=== PATIENT | male | born 1960 | race Caucasian/White ===

== ENCOUNTER 2016-05-18 14:48 | Inpatient (IN) | payer OTHER ==
--- NOTE | 2016-05-18 15:03 | EDPHY ---
H & P Stated Complaint: Bilat flank pain, starting 3 hours ago. Has chronic kidney DX Time Seen by Provider: 05/18/16 15:02 - Personal History Current Tetanus Diphtheria and Acellular Pertussis (TDAP): Yes - Medical/Surgical History Hx Asthma: No Hx Chronic Respiratory Disease: No Hx Diabetes: Yes Hx Cardiac Disease: No Hx Renal Disease: Yes Hx Cirrhosis: No Hx Alcoholism: No Hx HIV/AIDS: No Hx Splenectomy or Spleen Trauma: No Other PMH: Kidney dx, Diabetic - Social History Smoking Status: Never smoked Constitutional: Initial Vital Signs Heart Rate 77 05/18/16 14:50 Respiratory Rate 20 05/18/16 14:50 Blood Pressure 168/9 H 05/18/16 14:50 O2 Sat (%) 93 05/18/16 14:50 O2 Delivery Mode Room Air Allergies/Adverse Reactions: ancef Allergy (Uncoded 05/18/16 14:54) Medical Decision Making ED Course/Re-evaluation: CHIEF COMPLAINT: Vomiting, flank pain. HISTORY OF PRESENT ILLNESS: The patient is a 55-year-old male with a history of kidney failure who presents with vomiting and flank pain. He is usually dialyzed Wednesday, Wednesday, and Wednesday but has missed a day as he is visiting from [place]. He reports that these symptoms are similar to when he is in " fluid overload." He has been making a small amount of urine. He denies chills, fever, diarrhea, or other complaints. He believes he needs dialysis today. REVIEW OF SYSTEMS: A 10 point review of systems was performed and is negative with the exception of the elements mentioned in the history of present illness. PHYSICAL EXAM: HR, BP, O2 Sat, RR. Temp noted General Appearance: Alert, well hydrated, appropriate, and non-toxic appearing. Head: Atraumatic without scalp tenderness or obvious injury Eyes: Pupils equal, round, reactive to light and accommodation, EOMI, no trauma , no injection. Ears: Clear bilaterally, no perforation, normal landmarks Nose: Atraumatic, no rhinorrhea, clear. Throat: There is no erythema or exudates, no lesions, normal tonsils, mucus membranes moist. Neck: Supple, 2+ carotid upstroke, nontender, no lymphadenopathy. Respiratory: No retractions, no distress, no wheezes, and no accessory muscle use. Lungs are clear to auscultation bilaterally. Cardiovascular: Regular rate and rhythm, no murmurs, rubs, or gallops. Bilateral carotid, radial, dorsalis pedis, and posterior tibial pulses intact. Good capillary refill all extremities. Gastrointestinal: Abdomen is soft, nontender, non-distended, no masses, no rebound, no guarding, no peritoneal signs. Musculoskeletal: Normal active ROM of all extremities, atraumatic. Dialysis port in left arm. Neurological: Alert, appropriate, and interactive. The patient has normal DTRs and non-focal cranial nerves, motor, sensory, and cerebellar exam. Skin: No rashes, good turgor, no nodules on palpation. Past medical history: Diabetes with kidney failure, UTI. Past surgical history: N/A. Family history: N/A. Social history: Visiting from [place]. DIAGNOSTICS/PROCEDURES/CRITICAL CARE TIME: Critical care time spent by me, Dr. Ramirez, exclusively with this patient was 40 minutes, exclusive of PA time and exclusive of procedures. The organ system at risk was renal. I gave Ceftriaxone to prevent worsening of the patient's condition. DIFFERENTIAL DIAGNOSIS: The differential diagnosis for the patient's flank pain included but was not limited to musculoskeletal causes, kidney stone, pyelonephritis, shingles, diverticulitis, appendicitis, and aortic aneurysm. MEDICAL DECISION MAKIN-year-old male with a history of kidney failure secondary to diabetes presents with flank pain and vomiting. He is visiting from [place] and missed his last scheduled day (he is usually M/W/F dialysis). He has also been drinking more water as he is at altitude and reports that he gets these symptoms when he has fluid overload. We will draw labs and run urinalysis. Nephrology has been paged. 1mg IV Dilaudid administered for pain control. He is usually 126kg but today is 128. He has no evidence of shortness of breath, bloating, or other signs of fluid overload today. WBC elevated at 13.94. Urine shows 2+ leukocyte esterase. This could represent mild pyelonephritis. 1gm IV Ceftriaxone administered. BUN 144, Creatinine 14.4, potassium elevated at 5.6. 1532: Consulted with Dr. Altman, nephrology. She recommends admission for dialysis. 1640: Consulted with Dr. Altman, nephrology. She will consult with the patient. 1645: Consulted with Dr. Malcolm, hospitalist. She accepts admission to PCU. I discussed the plan with the patient and answered his questions. He is comfortable with the plan. - Data Points Laboratory Results: Laboratory Results 05/18/16 15:05 05/18/16 15:05 05/18/16 05/18/16 05/18/16 15:36 15:05 15:05 WBC 13.94 10^3/uL H 10^3/uL (3.80-9.50) RBC 3.52 10^6/uL L 10^6/uL (4.40-6.38) Hgb 10.9 g/dL L g/dL (13.7-17.5) Hct 32.8 % L % (40.0-51.0) MCV 93.2 fL fL (81.5-99.8) MCH 31.0 pg pg (27.9-34.1) MCHC 33.2 g/dL g/dL (32.4-36.7) RDW 14.3 % % (11.5-15.2) Plt Count 211 10^3/uL 10^3/uL (150-400) MPV 10.0 fL fL (8.7-11.7) Neut % (Auto) 77.9 % H % (39.3-74.2) Lymph % (Auto) 14.2 % L % (15.0-45.0) [place] % (Auto) 7.0 % % (4.5-13.0) Eos % (Auto) 0.0 % L % (0.6-7.6) Baso % (Auto) 0.4 % % (0.3-1.7) Nucleat RBC Rel Count 0.0 % % (0.0-0.2) Absolute Neuts (auto) 10.85 10^3/uL H 10^3/uL (1.70-6.50) Absolute Lymphs (auto) 1.98 10^3/uL 10^3/uL (1.00-3.00) Absolute Monos (auto) 0.98 10^3/uL H 10^3/uL (0.30-0.80) Absolute Eos (auto) 0.00 10^3/uL L 10^3/uL (0.03-0.40) Absolute Basos (auto) 0.06 10^3/uL 10^3/uL (0.02-0.10) Absolute Nucleated RBC 0.00 10^3/uL 10^3/uL (0-0.01) Immature Gran % 0.5 % % (0.0-1.1) Immature Gran # 0.07 10^3/uL 10^3/uL (0.00-0.10) Sodium 141 mEq/L mEq/L (134-144) Potassium 5.6 mEq/L H mEq/L (3.5-5.2) Chloride 98 mEq/L mEq/L (97-110) Carbon Dioxide 20 mEq/l L mEq/l (22-31) Anion Gap 23 mEq/L H mEq/L (8-16) BUN 144 mg/dL H* mg/dL (7-23) Creatinine 14.4 mg/dL H* mg/dL (0.7-1.3) Estimated GFR 4 Glucose 160 mg/dL H mg/dL (70-100) Calcium 10.3 mg/dL mg/dL (8.5-10.4) Total Bilirubin 0.6 mg/dL mg/dL (0.1-1.4) Conjugated Bilirubin 0.6 mg/dL H mg/dL (0.0-0.5) Unconjugated Bilirubin 0.0 mg/dL mg/dL (0.0-1.1) AST 19 IU/L IU/L (17-59) ALT 32 IU/L IU/L (21-72) Alkaline Phosphatase 85 IU/L IU/L (38-126) Total Protein 7.8 g/dL g/dL (6.3-8.2) Albumin 4.8 g/dL g/dL (3.5-5.0) Lipase 489.0 IU/L H IU/L (23-300) Urine Color YELLOW Urine Appearance MODERATELY TURBID Urine pH 5.0 (5.0-7.5) Ur Specific [place] 1.014 (1.002-1.030) Urine Protein 2+ H (NEGATIVE) Urine Ketones NEGATIVE (NEGATIVE) Urine Blood 1+ H (NEGATIVE) Urine Nitrate NEGATIVE (NEGATIVE) Urine Bilirubin NEGATIVE (NEGATIVE) Urine Urobilinogen NEGATIVE EU EU (0.2-1.0) Ur Leukocyte Esterase 2+ H (NEGATIVE) Urine RBC 1-3 /hpf /hpf (0-3) Urine WBC 50-182 /hpf H /hpf (0-3) Ur Epithelial Cells TRACE /lpf /lpf (NONE-1+) Urine Mucus TRACE /lpf /lpf (NONE-1+) Ur Culture Indicated? INDICATED H (NI) Urine Glucose 2+ H (NEGATIVE) Medications Given: Discontinued Medications Hydromorphone HCl (Dilaudid) 1 mg IVP EDNOW ONE Stop: 05/18/16 15:26 Last Admin: 05/18/16 16:02 Dose: 1 mg Departure - Departure Disposition: [facility] Inpatient Acute Clinical Impression: Pyelonephritis, Hyperkalemia Fluid overload Qualifiers: Hypervolemia type: unspecified Qualified Code(s): E87.70 - Fluid overload, unspecified Condition: Fair Referrals: ZORA FREIRE [Other] - As per Instructions Report Scribed for: Checo Ramirez Report Scribed by: Abhijit Ward Date of Report: 05/18/16 Time of Report: 15:29
[2016-05-18] MEDS ORDERED: HYDROmorphONE/DILAUDID 1 MG/ML SYR IVP ONE (15:25)
[2016-05-18 15:29] LABS: % IMMATURE GRANULYOCYTES 0.5 % (0.0-1.1); ABSOLUTE IMMATURE GRANULOCYTES 0.07 10^3/uL (0.00-0.10); ADD DIFF? NO; ADD MORPH? NO; ADD SCAN? NO; ATYPICAL LYMPHOCYTE FLAG 0 (0-99); FRAGMENT RBC FLAG 0 (0-99); HEMATOCRIT 32.8 % (40.0-51.0); HEMOGLOBIN 10.9 g/dL (13.7-17.5); LEFT SHIFT FLG 0 (0-99); LIPEMIA HEMOLYSIS FLAG 80 (0-99); MEAN CELL HEMOGLOBIN CONCENTR. 33.2 g/dL (32.4-36.7); MEAN CELL VOLUME 93.2 fL (81.5-99.8); PLATELET CLUMPS FLAG 0 (0-99); PLATELET COUNT 211 10^3/uL (150-400); RED BLOOD CELL COUNT 3.52 10^6/uL (4.40-6.38); RED CELL DISTRIBUTION WIDTH 14.3 % (11.5-15.2)
[2016-05-18 15:54] LABS: ALANINE AMINOTRANSFERASE 32 IU/L (21-72); ALBUMIN 4.8 g/dL (3.5-5.0); ALKALINE PHOSPHATASE 85 IU/L (38-126); ANION GAP 23 mEq/L (8-16); ASPARTATE AMINOTRANSFERASE 19 IU/L (17-59); BILIRUBIN,TOTAL 0.6 mg/dL (0.1-1.4); BILIRUBIN-CONJUGATED 0.6 mg/dL (0.0-0.5); CALCIUM 10.3 mg/dL (8.5-10.4); CARBON DIOXIDE 20 mEq/l (22-31); CHLORIDE 98 mEq/L (97-110); GLUCOSE 160 mg/dL (70-100); POTASSIUM 5.6 mEq/L (3.5-5.2); SODIUM 141 mEq/L (134-144); TOTAL PROTEIN 7.8 g/dL (6.3-8.2)
[2016-05-18 16:05] LABS: COLOR YELLOW; LEUKOCYTE ESTERASE,URINE 2+ (NEGATIVE); NITRITE,URINE NEGATIVE (NEGATIVE)
[2016-05-18 16:17] LABS: MUCUS TRACE /lpf (NONE-1+); WBC,URINE 50-182 /hpf (0-3)
[2016-05-18 16:24] LABS: GLOMERULAR FILTRATION RATE 4
[2016-05-18 16:26] LABS: CREATININE 14.4 mg/dL (0.7-1.3)
[2016-05-18] MEDS ORDERED: ONDANSETRON DISINTEGRATING 4 MG TAB PO PRN ×2 (17:53→18:18)
[2016-05-18] MEDS ORDERED: ACETAMINOPHEN 325 MG TAB PO PRN ×2 (17:53→18:18)
[2016-05-18] MEDS ORDERED: oxyCODONE IR 5 MG TAB PO PRN ×2 (17:53→18:18)
[2016-05-18] MEDS ORDERED: ONDANSETRON 4 MG/2 ML VIAL IVP PRN ×2 (17:53→18:18)
[2016-05-18] MEDS ORDERED: D50W 25 GM/50 ML SYR IVP PRN (18:09)
--- NOTE | 2016-05-18 18:38 | PDGENHP ---
History and Physical - Chief Complaint ESRD - History of Present Illness Mr. Gipson is a 55 yo M with h/o ESRD on HD MWF at [facility] in [place], [place]. He states he has been on HD since 2012, likely had diabetic nephropathy. He is here visiting for the week for a course. He states that he placed a 60 day request with [facility] about dialyzing locally and was told to come to [facility] on Wednesday and , but the unit is not open then. It turns out he was given the wrong address and the unit he was given instead says they are full and unable to accommodate him. So he does not know where he will dialyze this week. Pt came in with complaints of flank pain, N/V that started today. He notes that he is not that much over his dry weight, and his breathing feels comfortable. History Information - Allergies/Home Medication List Allergies/Adverse Reactions: ancef Allergy (Uncoded 05/18/16 14:54) Home Medications: Acetaminophen [Tylenol ES 500 mg (*)] 500 mg PO TID 05/18/16 [Last Taken 12:00] Calcium Acetate [Phoslo (*)] 667 mg PO TID 05/18/16 [Last Taken 05/18/16 12:00] Folic Acid/Vit B Complex and C [Dialyvite Tablet] 1 tab PO DAILY 05/18/16 [Last Taken 05/18/16 06:00] Furosemide [Lasix 80 MG (*)] 80 mg PO SUTUTHSA@06 05/18/16 [Last Taken 05/17/16 06:00] Insulin Glargine [Lantus 100 UNITS/ML (*)] 16 units SC DAILY 05/18/16 [Last Taken 05/18/16 06:00] Insulin Lispro [humALOG LISPRO 100 units/ml (*)] 16 unit SC TIDMEAL 05/18/16 [ Last Taken 05/18/16 12:00] Losartan Potassium [Cozaar] 100 mg PO HS 05/18/16 [Last Taken 05/17/16 18:30] NIFEdipine ER [Adalat CC 30 mg (*)] 30 mg PO DAILY 05/18/16 [Last Taken 06:00] Sertraline HCl [Zoloft 25mg (*)] 25 mg PO HS 05/18/16 [Last Taken 05/17/16 18:30 ] Simvastatin [Zocor] 40 mg PO HS 05/18/16 [Last Taken 05/17/16 18:30] I have personally reviewed and updated: medical history - Past Medical History Additional medical history: ESRD. DM - Surgical History Additional surgical history: L 5th toe amputation. LUE AVF creation - Family History Additional family history: noncontributory - Social History Smoking Status: Never smoked Review of Systems ROS: 10pt was reviewed & negative except for what was stated in HPI & below Physical Exam Temp Pulse Resp BP Pulse Ox 86 16 145/74 H 98 05/18/16 18:04 05/18/16 18:04 05/18/16 18:04 05/18/16 18:04 Constitutional: no apparent distress, appears nourished Eyes: PERRL, anicteric sclera, EOMI Ears, Nose, Mouth, Throat: moist mucous membranes, hearing normal Cardiovascular: regular rate and rhythym, pulses symmetric bilaterally Peripheral Pulses: 2+: dorsalis-pedis (R), dorsalis-pedis (L) Respiratory: no respiratory distress, no rales or rhonchi, clear to auscultation Gastrointestinal: normoactive bowel sounds, soft, non-tender abdomen Skin: warm, No rash Musculoskeletal: full muscle strength, other (s/p L 5th toe amputation) Neurologic: AAOx3, CN II-XII Intact, No asterixes Psychiatric: interacting appropriately, not anxious, not encephalopathic Lab Data & Imaging Review 05/18/16 15:05 05/18/16 15:05 WBC 13.94 10^3/uL (3.80-9.50) H 05/18/16 15:05 RBC 3.52 10^6/uL (4.40-6.38) L 05/18/16 15:05 Hgb 10.9 g/dL (13.7-17.5) L 05/18/16 15:05 Hct 32.8 % (40.0-51.0) L 05/18/16 15:05 MCV 93.2 fL (81.5-99.8) 05/18/16 15:05 MCH 31.0 pg (27.9-34.1) 05/18/16 15:05 MCHC 33.2 g/dL (32.4-36.7) 05/18/16 15:05 RDW 14.3 % (11.5-15.2) 05/18/16 15:05 Plt Count 211 10^3/uL (150-400) 05/18/16 15:05 MPV 10.0 fL (8.7-11.7) 05/18/16 15:05 Neut % (Auto) 77.9 % (39.3-74.2) H 05/18/16 15:05 Lymph % (Auto) 14.2 % (15.0-45.0) L 05/18/16 15:05 [place] % (Auto) 7.0 % (4.5-13.0) 05/18/16 15:05 Eos % (Auto) 0.0 % (0.6-7.6) L 05/18/16 15:05 Baso % (Auto) 0.4 % (0.3-1.7) 05/18/16 15:05 Nucleat RBC Rel Count 0.0 % (0.0-0.2) 05/18/16 15:05 Absolute Neuts (auto) 10.85 10^3/uL (1.70-6.50) H 05/18/16 15:05 Absolute Lymphs (auto) 1.98 10^3/uL (1.00-3.00) 05/18/16 15:05 Absolute Monos (auto) 0.98 10^3/uL (0.30-0.80) H 05/18/16 15:05 Absolute Eos (auto) 0.00 10^3/uL (0.03-0.40) L 05/18/16 15:05 Absolute Basos (auto) 0.06 10^3/uL (0.02-0.10) 05/18/16 15:05 Absolute Nucleated RBC 0.00 10^3/uL (0-0.01) 05/18/16 15:05 Immature Gran % 0.5 % (0.0-1.1) 05/18/16 15:05 Immature Gran # 0.07 10^3/uL (0.00-0.10) 05/18/16 15:05 Sodium 141 mEq/L (134-144) 05/18/16 15:05 Potassium 5.6 mEq/L (3.5-5.2) H 05/18/16 15:05 Chloride 98 mEq/L (97-110) 05/18/16 15:05 Carbon Dioxide 20 mEq/l (22-31) L 05/18/16 15:05 Anion Gap 23 mEq/L (8-16) H 05/18/16 15:05 BUN 144 mg/dL (7-23) H* 05/18/16 15:05 Creatinine 14.4 mg/dL (0.7-1.3) H* 05/18/16 15:05 Estimated GFR 4 05/18/16 15:05 Glucose 160 mg/dL (70-100) H 05/18/16 15:05 Calcium 10.3 mg/dL (8.5-10.4) 05/18/16 15:05 Total Bilirubin 0.6 mg/dL (0.1-1.4) 05/18/16 15:05 Conjugated Bilirubin 0.6 mg/dL (0.0-0.5) H 05/18/16 15:05 Unconjugated Bilirubin 0.0 mg/dL (0.0-1.1) 05/18/16 15:05 AST 19 IU/L (17-59) 05/18/16 15:05 ALT 32 IU/L (21-72) 05/18/16 15:05 Alkaline Phosphatase 85 IU/L (38-126) 05/18/16 15:05 Total Protein 7.8 g/dL (6.3-8.2) 05/18/16 15:05 Albumin 4.8 g/dL (3.5-5.0) 05/18/16 15:05 Lipase 489.0 IU/L (23-300) H 05/18/16 15:05 Urine Color YELLOW 05/18/16 15:36 Urine Appearance MODERATELY TURBID 05/18/16 15:36 Urine pH 5.0 (5.0-7.5) 05/18/16 15:36 Ur Specific [place] 1.014 (1.002-1.030) 05/18/16 15:36 Urine Protein 2+ (NEGATIVE) H 05/18/16 15:36 Urine Ketones NEGATIVE (NEGATIVE) 05/18/16 15:36 Urine Blood 1+ (NEGATIVE) H 05/18/16 15:36 Urine Nitrate NEGATIVE (NEGATIVE) 05/18/16 15:36 Urine Bilirubin NEGATIVE (NEGATIVE) 05/18/16 15:36 Urine Urobilinogen NEGATIVE EU (0.2-1.0) 05/18/16 15:36 Ur Leukocyte Esterase 2+ (NEGATIVE) H 05/18/16 15:36 Urine RBC 1-3 /hpf (0-3) 05/18/16 15:36 Urine WBC 50-182 /hpf (0-3) H 05/18/16 15:36 Ur Epithelial Cells TRACE /lpf (NONE-1+) 05/18/16 15:36 Urine Mucus TRACE /lpf (NONE-1+) 05/18/16 15:36 Ur Culture Indicated? INDICATED (NI) H 05/18/16 15:36 Urine Glucose 2+ (NEGATIVE) H 05/18/16 15:36 Assessment & Plan Assessment: Assessment/Plan: ESRD: pt has HD on MWF, last dialyzed on Wednesday at his home unit in [place]. He is visiting and somehow his outpatient dialysis to be done here has not been set up correctly. - Will do HD tomorrow. - Will look into his dialysis options tomorrow to be done later this week as outpatient. Hypervolemia: continue home Lasix, will further modulate on HD. HTN: continue home meds. Hyperkalemia: will modulate on HD. Anemia: Hgb 10.9, at goal, no need for inpt epo. Thank you for the interesting consult. Nephrology will continue to monitor, please call with any additional questions or concerns.
--- NOTE | 2016-05-18 19:27 | GHP ---
[f rep st] HISTORY AND PHYSICAL DATE OF ADMISSION: 05/18/2016 CHIEF COMPLAINT: Nausea, vomiting, and flank pain. HISTORY OF PRESENT ILLNESS: The patient is a 55-year-old male with a history of diabetes and diabetic nephropathy resulting in end-stage renal disease, who currently is on a Wednesday, Wednesday, Wednesday hemodialysis regimen in [place]. He presents to the emergency department as his plan to continue dialysis as a visitor to the [facility] failed and today while in a conference, he developed bilateral flank pain which progressed to nausea and vomiting. He denies fevers or chills. He denies chest pain, shortness of breath, or abdominal pain. He does make some urine and endorses dysuria. The patient reports his dry weight is 120 kg, and he currently feels he is at least 3.5 kilos up from his dry weight. He also has a history of a diabetic foot ulcer and in January of last year underwent a 5th metatarsal amputation. He currently denies any erythema, pain, or purulence from his wound site, which has been healing well and he has been doing good wound care independently. In the emergency department, he has an abnormal urinalysis with an elevated white blood cell count though he is afebrile without hypotension or tachycardia. Labs revealed an elevated potassium of 5.6, a creatinine of 14.4, and the patient was admitted to the hospital for treatment of a UTI and a need for dialysis. PAST MEDICAL HISTORY: 1. Insulin-dependent diabetes mellitus. 2. Diabetic nephropathy. 3. End-stage renal disease, on hemodialysis with a regimen of Wednesday, Wednesday , Wednesday. 4. Obstructive sleep apnea. 5. History of sepsis related to infected port. 6. Diabetic foot ulcer. PAST SURGICAL HISTORY: 1. Left 5th metatarsal amputation related to diabetic foot ulcer. 2. At least 2 port placements and removals. FAMILY HISTORY: Positive for diabetes and COPD in his mother. SOCIAL HISTORY: The patient denies alcohol or tobacco use. 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 Unfortunately , he fell ill the first day of the conference and he is quite disappointed to be hospitalized. REVIEW OF SYSTEMS: A 10-point review of systems was performed and is negative except as per HPI. OBJECTIVE: VITAL SIGNS: He is afebrile. Blood pressure 168/90, heart rate 77 , respiratory rate 20, 93% on room air. GENERAL: The patient is awake, alert, and oriented in no acute distress. HEENT: Head is atraumatic, normocephalic. Pupils equal, round, and reactive to light. Extraocular muscles are intact. Oropharynx is clear. Mucous members are moist. NECK: Supple. There is no JVD. HEART: Regular rate and rhythm. LUNGS: Clear to auscultation bilaterally. ABDOMEN: Soft, nondistended, nontender with normoactive bowel sounds. He has bilateral CVA tenderness. EXTREMITIES: Reveal trace to 1+ lower extremity pitting edema with brawny discoloration. His left 5th metatarsal amputation appears to be healing well. There is no erythema, purulence, or warmth. NEUROLOGIC: Exam is grossly nonfocal. LABORATORY DATA: CBC reveals a white blood cell count 13.9, hemoglobin 10.9. He has 78% neutrophils. Complete metabolic panel reveals a sodium of 141, potassium of 5.6, CO2 of 20. He has an elevated anion gap of 23, BUN 144, creatinine 14.4, blood sugar 160. Lipase slightly elevated at 489. Urinalysis shows 2+ protein, 1+ blood, 2+ leukocyte esterase with 50-180 white cells. Negative nitrites, no bacteria is noted. ASSESSMENT AND PLAN: The patient is a 55-year-old male with a history of dialysis dependent end-stage renal disease secondary to diabetic nephropathy who presents to the emergency department with nausea, vomiting, and flank pain. 1. End-stage renal disease secondary to diabetic nephropathy with volume overload. He is up at least 3.5 kilos from his dry weight. His potassium is slightly elevated at 5.6, which he states is near his baseline. Nephrology is consulting and will arrange for dialysis, likely to be done tomorrow. Daily renal function panel. 2. Possible urinary tract infection. The patient does have urinary symptoms as well as flank pain and leukocytosis. His urinalysis shows pyuria though he has negative nitrites and no bacteria is noted. Blood cultures and urine cultures are pending. We will continue ceftriaxone empirically while we await culture data. 3. Insulin-dependent diabetes mellitus. His blood sugar on arrival is 160. Will continue his outpatient insulin regimen. 4. Elevated lipase. This is likely secondary to vomiting. He has no significant abdominal pain or tenderness. Will recheck this in the morning. 5. Anion gap metabolic acidosis. Likely related to his chronic kidney disease. Will defer oral sodium bicarb dosing to Renal and follow. 6. Deep venous thrombosis prophylaxis. Heparin. 7. Code status. Patient is full code. 8. Disposition. Patient is admitted to inpatient status as I suspect he may require greater than 48 hours hospitalization given his dialysis needs. /[id number]/MODL MTDD
[2016-05-18] MEDS ORDERED: NON-FORMULARY NEW DRUG (Simvastatin [Zocor] 40 MG) PO SCH (21:00)
[2016-05-18] MEDS ORDERED: SERTRALINE HCL 25 MG TAB PO SCH ×2 (21:00)
[2016-05-18] MEDS ORDERED: NON-FORMULARY NEW DRUG (Losartan Potassium [Cozaar] 100 MG) PO SCH (21:00)
[2016-05-18] MEDS ORDERED: ATORVASTATIN CALCIUM 20 MG TAB PO SCH (21:00)
[2016-05-18] MEDS: CALCIUM ACETATE 667 MG CAP PO SCH (21:48)
[2016-05-18] MEDS: HEPARIN 5,000 UNIT/0.5 ML SYR SC SCH (21:48)
[2016-05-18] MEDS ORDERED: CALCIUM ACETATE 667 MG CAP PO SCH (22:00)
[2016-05-18] MEDS ORDERED: HEPARIN 5,000 UNIT/0.5 ML SYR SC SCH (22:00)
[2016-05-19 04:57] LABS: % IMMATURE GRANULYOCYTES 0.5 % (0.0-1.1); ABSOLUTE IMMATURE GRANULOCYTES 0.05 10^3/uL (0.00-0.10); ADD DIFF? NO; ADD MORPH? NO; ADD SCAN? NO; ATYPICAL LYMPHOCYTE FLAG 0 (0-99); FRAGMENT RBC FLAG 0 (0-99); HEMATOCRIT 29.1 % (40.0-51.0); HEMOGLOBIN 9.5 g/dL (13.7-17.5); LEFT SHIFT FLG 0 (0-99); LIPEMIA HEMOLYSIS FLAG 80 (0-99); MEAN CELL HEMOGLOBIN 31.4 pg (27.9-34.1); MEAN CELL HEMOGLOBIN CONCENTR. 32.6 g/dL (32.4-36.7); MEAN PLATELET VOLUME 9.8 fL (8.7-11.7); PLATELET CLUMPS FLAG 0 (0-99); PLATELET COUNT 139 10^3/uL (150-400); RED BLOOD CELL COUNT 3.03 10^6/uL (4.40-6.38); RED CELL DISTRIBUTION WIDTH 14.1 % (11.5-15.2)
[2016-05-19 05:25] LABS: ALBUMIN 3.9 g/dL (3.5-5.0); ANION GAP 21 mEq/L (8-16); CALCIUM 9.7 mg/dL (8.5-10.4); CARBON DIOXIDE 18 mEq/l (22-31); CHLORIDE 99 mEq/L (97-110); GLUCOSE 109 mg/dL (70-100); POTASSIUM 5.7 mEq/L (3.5-5.2); SODIUM 138 mEq/L (134-144)
[2016-05-19 05:34] LABS: GLOMERULAR FILTRATION RATE 3
[2016-05-19 05:35] LABS: CREATININE 15.1 mg/dL (0.7-1.3)
[2016-05-19] MEDS: HEPARIN 5,000 UNIT/0.5 ML SYR SC SCH ×2 (05:45→14:33)
[2016-05-19] MEDS ORDERED: INSULIN GLARGINE 100 UNITS/ML SYRINGE SC SCH ×2 (06:00)
[2016-05-19] MEDS ORDERED: FUROSEMIDE 80 MG TAB PO SCH ×2 (06:00)
[2016-05-19] MEDS: INSULIN LISPRO 100 UNIT/ML SC SCH ×2 (07:43→12:52)
[2016-05-19] MEDS: CALCIUM ACETATE 667 MG CAP PO SCH ×2 (07:44→15:59)
[2016-05-19] MEDS ORDERED: INSULIN LISPRO 100 UNIT/ML SC SCH (08:00)
[2016-05-19] MEDS ORDERED: NEPHROVITE FOLIC ACID/VIT B&C 1 TAB PO SCH (09:00)
[2016-05-19] MEDS ORDERED: FOLIC ACID PO SCH (09:00)
[2016-05-19] MEDS ORDERED: NIFEdipine ER 30 MG TAB PO SCH ×2 (09:00)
[2016-05-19] MEDS ORDERED: VIT B COMPLEX AND C PO SCH (09:00)
--- NOTE | 2016-05-19 09:05 | SOAPPROG ---
[facility] Progress Note Assessment/Plan: Assessment: 1. ESRD Seen on HD this am. Fistula function good. We are working on placement on at the [facility] for second shift at noon. He last dialyzed on Wednesday. BUN high, but do not expect dysequilibrium from just one missed dialysis day. He will return to [place] on Wednesday pm, and have HD Wednesday at his home unit. 2. BP Elevated. Expect this to improve with volume removal. Subjective: Doing ok on HD Objective: Vital Signs Temp Pulse Resp BP Pulse Ox 36.7 C 66 12 191/71 H 96 05/19/16 07:19 05/19/16 07:19 05/19/16 07:19 05/19/16 07:19 05/19/16 07:19 Laboratory Results 05/19/16 04:29 05/19/16 04:29 05/18/16 05/19/16 05/20/16 05:59 05:59 05:59 Intake Total 1300 Output Total 750 200 Balance 550 -200 Physical Exam - Physical Exam General Appearance: no apparent distress Respiratory: lungs clear Cardiac/Chest: regular rate, rhythm Extremities: pedal edema Neuro/Psych: oriented x 3 ICD10 Worksheet Patient Problems: Problems Problem Status Onset Fluid overload Acute Hyperkalemia Acute Pyelonephritis Acute
[2016-05-19 12:50] VITALS: RESP 14
--- NOTE | 2016-05-19 14:09 | WOCRNPDOC ---
ANDRE Advanced Assessment Note - Skin Integrity Problem, Advanced Assess Left Foot Surgical Wound/Incision Dressing Type: [place], Gauze Dressing Description: Intact, Shadowed Exudate Amount: Scant Exudate Color: Yellow Exudate Characteristic(s): Dried Integumentary Issue Intervention: Dressing Changed (Applied Silvasorb gel to wound bed; Covered w/small Allevyn. Reinforced for footwear w/Coban.) Jennifer Wound Tissue: Scaly, Dry Jennifer Wound Swelling: None Wound Bed Color: [place], Yellow Wound Bed Constitution: Granulation Tissue (30%; friable), Adhered Slough (70%) Wound Edges: Well Defined, Scarred Site Odor: Musky Site Odor Comment: From between toes: Cleaned w/gauze and saline Site Measurement - Head-to-Toe Length X Width X Depth (cm): 0.7 x 0.5 x 0.5 Skin Integrity Problem Comment: Small full-thickness opening at distal aspect of a 2 cm healing scar along amputation site, with generalized dry scaly condition of intact skin, especially at heels. Adherent slough partially occludes base of wound. Patient reports that amputation surgeries occurred in Oct 2015 and February 2016; he is being followed by his computer artist in [place]. Flushed site w/sterile NS, cleaned w/gauze and q-tip. Applied Silvasorb gel, covered w/small Allevyn, reinforced w/Coban. Provided patient w/verbal post-DC care instructions. Dr. Alonso and Jarod RN present. Left Dorsal Third Toe Surgical Wound/Incision Dressing Type: [place], Gauze Dressing Description: Clean/Dry, Intact Exudate Amount: None Integumentary Issue Intervention: Dressing Applied, Dressing Changed Jennifer Wound Swelling: None Wound Bed Constitution: Smooth Tissue Wound Edges: Well Defined Site Odor: Musky (between toes) Site Measurement - Head-to-Toe Length X Width X Depth (cm): 0.5 gris x 0.3 Skin Integrity Problem Comment: Small full-thickness opening at distal aspect of a 1.5 cm healing scar adjacent to amputation site, with generalized dry scaly condition of intact skin, especially at heels. Flushed site w/sterile NS , cleaned w/gauze and q-tip. Applied Silvasorb gel, covered w/small Allevyn, reinforced w/Coban. Provided patient w/verbal post-DC care instructions.
--- NOTE | 2016-05-19 14:25 | GDS ---
[f rep st] DISCHARGE SUMMARY DIAGNOSES: 1. Possible urinary tract infection with urine culture pending. 2. Nausea, vomiting, flank pain. 3. End-stage renal disease, on hemodialysis. 4. Diabetes mellitus type 2. 5. Hypertension. 6. History of diabetic foot ulcer, status post 2 metatarsal amputations. HOSPITAL COURSE: A 55-year-old man who is traveling from [place] for a conference here presented wi nausea, vomiting, and flank pain. Found to have a likely urinary tract infection. Received empi wil Rocephin, will change to Levaquin dosed for HD on discharge. Instructed him to return to the [facility] if he has recurrent symptoms, including nausea, vomiting, flank pain. We will to follow up o n urine culture tomorrow for him to make sure Levaquin is appropriate. He has end-stage renal disease. There was an error getting him set up for dialysis at [facility] as he is from out of town. He was seen by Nephrology here, who dialyzed him today. They have set him up for dialysis at the [facility] on 11:45:00 a.m. on . He has been given this information, their phone number as well as address. Appreciate Renal's assistance for the patient. He has diabetes. He also has a history of a diabetic foot ulcer with a mild foot ulcer. He was see n by Wound Care, who will make recommendations. It does not appear infected at this point. /[id number]/MODL
[2016-05-19 15:58] VITALS: BP 168/83; PULSE 58; TEMP 97.8; O2SAT 95
[2016-05-19] MEDS ORDERED: LIDOCAINE 1% *Not for Epidural 20 ML MDV ONE (17:00)
[2016-05-19] MEDS ORDERED: LOSARTAN POTASSIUM 50 MG TAB PO SCH (21:00)
== END 2016-05-19 17:13 | disposition home or self-care (01) | DRG 689 ==
LOC: OBSVTOIN 17:53 → F2W 18:16
PROVIDERS: ADMIT Hospitalist; ATTEND Hospitalist
PROC: 5A1D00Z (ICD-10-PCS; principal; 2016-05-19)
DX: N39.0 Urinary tract infection, site not specified (principal); N18.6 End stage renal disease; I12.0 Hypertensive chronic kidney disease with stage 5 chronic kidney disease or end stage renal disease; E11.22 Type 2 diabetes mellitus with diabetic chronic kidney disease; E87.5 Hyperkalemia; Z79.4 Long term (current) use of insulin; G47.33 Obstructive sleep apnea (adult) (pediatric); Z99.2 Dependence on renal dialysis; Z89.422 Acquired absence of other left toe(s); E87.70 Fluid overload, unspecified
CPT/HCPCS: 96365; J0696; J1170; J1815